=== PATIENT | female | born 1960 | race Asian ===

== ENCOUNTER 2025-03-09 09:12 | Emergency (ER) | payer SELFPAY ==
[2025-03-09] MEDS ORDERED: MECLIZINE HCL 12.5 MG TAB ONE (10:10)
--- NOTE | 2025-03-09 10:16 | RAD REPORT ---
EXAM: CT Head Brain Wo Cont HISTORY: DIZZINESS COMPARISON: None TECHNIQUE: Multiple contiguous axial images were obtained for a CT of the brain without contrast. Sag ittal and coronal reformats were performed. One or more of the following dose reduction techniques were used: Automated exposure control, adjus tment of the mA and kV according to patient size, and iterative reconstruction. Unless otherwise specified, incidental findings do not require dedicated imaging follow-up. FINDINGS: No evidence of hydrocephalus, intracranial hemorrhage, or extra-axial fluid collection. The brain is normal in morphology. Expanded empty sella is incidentally noted. The calvarium is intact. The visualized paranasal sinuses and mastoid air cells are essentially clear . IMPRESSION: No evidence of acute intracranial abnormality. Incidentally noted expanded empty sella, this can be asymptomatic, however please correlate clinicall y for any hormonal abnormalities.
[2025-03-09 10:31] LABS: Absolute Lymphocytes (CBC) 2.2 K/uL (0.7-4.9); Hematocrit 38.8 % (36.0-45.0); Hemoglobin 12.6 g/dL (12.0-15.0); MCH 29.4 pg (27.0-35.0); MCHC 32.5 g/dL (32.0-36.0); MCV 90.5 fL (80-100); MPV 8.2 fL (7.6-11.3); Nucleated RBC Absolute Count 0.0 (0-0); Nucleated Red Blood Cells % 0.1 % (0-0); RBC Red Blood Cell Count 4.29 M/uL (3.86-4.86); White Blood Count 7.20 thou/uL (4.3-10.9)
[2025-03-09 10:42] LABS: ALT/SGPT 16 U/L (13-56); Albumin 3.0 g/dL (3.4-5.0); Albumin/Globulin Ratio 0.7 (1.1-1.8); Alkaline Phosphatase 75 U/L (45-117); Anion Gap 7.0 mEq/L (5.0-15.0); BUN Blood Urea Nitrogen 8 mg/dL (7-18); Globulin 4.6 g/dL (2.3-3.5); Glucose Level 101 mg/dL (74-106)
[2025-03-09 10:43] LABS: AST/SGOT 13 U/L (15-37); Bilirubin Indirect, Calculated 0.2 mg/dL (0.2-0.8); Magnesium 1.9 mg/dL (1.6-2.4); Potassium 4.0 mEq/L (3.5-5.1)
--- NOTE | 2025-03-09 10:56 | EDPHYS ---
Physician Documentation [facility] Name: Betty Manuel Age: 64 yrs Sex: Female : 1960 Arrival Date: 03/09/2025 Time: 09:12 Bed 16 Private MD: ED Physician Brett Robles HPI: 03/09 09:46 This 64 yrs old Female presents to ER via Ambulatory with complaints of sp3 Dizziness, Nausea. 09:46 64-year-old female with no significant past medical history presents with sp3 vertigo/dizziness symptoms coupled with mild headache episodically for the last 3 to 4 days. Patient was seen at PCP by nurse practitioner and was told that she had a normal physical exam and nothing further was indicated. No medications were given. She presents here for continued symptoms. She denies any ringing in her ears, changes in vision, changes in speech, changes in hearing, unilateral or global weakness, numbness or tingling, or any other neurological complaints or symptoms. She also denies neck pain, trauma, chest pain, shortness of breath, back pain, abdominal pain, vomiting, diarrhea, fever, URI symptoms, or any other signs or symptoms on ROS at this time. She does endorse mild nausea when the dizziness gets worse.. Historical: - Allergies: 09:35 No Known Allergies; iw - Home Meds: 09:35 None [Active]; iw - PMHx: 09:35 None; iw - PSHx: 09:35 None; iw - Infectious Disease History:: Denies. - Social history:: Smoking status: Patient denies any tobacco usage or history of. Patient/guardian denies using. ROS: 09:47 Constitutional: Negative for fever, chills, and weight loss, Eyes: Negative for injury, sp3 pain, redness, and discharge, ENT: Negative for injury, pain, and discharge, Neck: Negative for injury, pain, and swelling, Cardiovascular: Negative for chest pain, palpitations, and edema, Respiratory: Negative for shortness of breath, cough, wheezing, and pleuritic chest pain, Abdomen/GI: Negative for abdominal pain, nausea, vomiting, diarrhea, and constipation, Back: Negative for injury and pain, MS/Extremity: Negative for injury and deformity, Skin: Negative for injury, rash, and discoloration, Psych: Negative for depression, anxiety, suicide ideation, homicidal ideation, and hallucinations, Allergy/Immunology: Negative for hives, rash, and allergies, Endocrine: Negative for neck swelling, polydipsia, polyuria, polyphagia, and marked weight changes, Hematologic/Lymphatic: Negative for swollen nodes, abnormal bleeding, and unusual bruising, 09:47 All other systems are negative, Exam: 09:48 Constitutional: This is a well developed, well nourished patient who is awake, alert, sp3 and in no acute distress. Head/Face: Normocephalic, atraumatic. Eyes: Pupils equal round and reactive to light, extra-ocular motions intact. Lids and lashes normal. Conjunctiva and sclera are non-icteric and not injected. Cornea within normal limits. Periorbital areas with no swelling, redness, or edema. ENT: Nares patent. No nasal discharge, no septal abnormalities noted. External auditory canals are clear. Oropharynx with no redness, swelling, or masses, exudates, or evidence of obstruction, uvula midline. Mucous membranes moist. Neck: Trachea midline, no thyromegaly or masses palpated, and no cervical lymphadenopathy. Supple, full range of motion without nuchal rigidity, or vertebral point tenderness. No Meningismus. Chest/axilla: Normal chest wall appearance and motion. Nontender with no deformity. No lesions are appreciated. Cardiovascular: Regular rate and rhythm with a normal S1 and S2. No gallops, murmurs, or rubs. Normal PMI, no JVD. No pulse deficits. Respiratory: Lungs have equal breath sounds bilaterally, clear to auscultation and percussion. No rales, rhonchi or wheezes noted. No increased work of breathing, no retractions or nasal flaring. Abdomen/GI: Soft, non-tender, with normal bowel sounds. No distension or tympany. No guarding or rebound. No evidence of tenderness throughout. Back: No spinal tenderness. No costovertebral tenderness. Full range of motion. Skin: Warm, dry with normal turgor. Normal color with no rashes, no lesions, and no evidence of cellulitis. MS/ Extremity: Pulses equal, no cyanosis. Neurovascular intact. Full, normal range of motion. Psych: Awake, alert, with orientation to person, place and time. Behavior, mood, and affect are within normal limits. 09:48 Neuro: Normal neurological exam noted. Vertigo is inducible and subsides with time. No significant nystagmus noted., Vital Signs: 09:36 BP 121 / 76; Pulse 63; Resp 16; Temp 97.6; Pulse Ox 100% on R/A; Weight 58.51 kg; iw Height 4 ft. 8 in. ; 09:36 Body Mass Index 28.92 (58.51 kg, 142.24 cm) iw MDM: 09:32 Medical Screening Exam initiated sp3 09:48 Data reviewed: vital signs, nurses notes, lab test result(s), radiologic studies. ED sp3 course: 64-year-old female with dizziness. Differential diagnosis includes peripheral vertigo versus central vertigo versus tumor versus mass versus viral illness. I am not highly suspicious of TIA/stroke spectrum. Will obtain CT scan of the head, general labs and administer meclizine for both symptomatic and diagnostic trial. Disposition pending workup and patient course. Vital signs are normal and patient is in no acute distress resting comfortably.. 10:54 ED course: Patient feels better after meclizine. Full workup negative. Will discharge sp3 on meclizine with PCP follow-up.. 10 09:44 Order name: Basic Metabolic Panel; Complete Time: 10:53 sp3 03/09 09:44 Order name: CBC with Diff; Complete Time: 10:53 sp3 03/09 09:44 Order name: Hepatic Function; Complete Time: 10:53 sp3 03/09 09:44 Order name: Magnesium; Complete Time: 10:53 sp3 03/09 09:44 Order name: CT Head Brain wo Cont; Complete Time: 10:16 sp3 03/09 09:44 Order name: IV Saline Lock; Complete Time: 10:14 sp3 03/09 09:44 Order name: Labs collected and sent; Complete Time: 10:14 sp3 03/09 09:44 Order name: NPO; Complete Time: 10:29 sp3 Administered Medications: 10:14 Drug: Meclizine PO 25 mg PO once Route: PO; iw 10:45 Follow up: Response: No adverse reaction af3 Disposition Summary: 03/09/25 10:55 Discharge Ordered Notes: Location: Home sp3 Condition: Stable sp3 Diagnosis - Peripheral vertigo sp3 Followup: sp3 - With: Private Physician - When: Upon discharge from the Emergency Department - Reason: Continuance of care Discharge Instructions: - Discharge Summary Sheet sp3 - Vertigo sp3 Forms: - Medication Reconciliation Form sp3 - Antibiotic Education sp3 - Prescription Opioid Use sp3 - Patient Portal Instructions sp3 - Leadership Thank You Letter sp3 Prescriptions: - Meclizine 25 mg Oral Tablet - take 1 tablet ORAL route every 8 hours As needed; 30 tablet; Refills: 0, sp3 Product Selection Permitted Signatures: Dispatcher [employer] Tana Palacio, KIMMY ONEAL iw Brett Robles MD MD sp3 Neena Velazco RN af3
--- NOTE | 2025-03-09 10:56 | ER ---
Nurse's Notes [facility] Name: Betty Manuel Age: 64 yrs Sex: Female : 1960 Arrival Date: 03/09/2025 Time: 09:12 Bed 16 Private MD: Diagnosis: Peripheral vertigo Presentation: 03/09 09:32 Chief complaint: Patient states: dizziness, nausea X 2 days, today it is worse, she iw woke up feeling like the room is spinning and her head feels heavy , [facility] and they did an ekg and checked her ears and said she was ok, she also was having back pain and took "back aid" (tylenol/pamabrom) and her daughter states that is when she started feeling dizzy. Coronavirus screen: At this time, the client does not indicate any symptoms associated with coronavirus-19. Ebola Screen: No symptoms or risks identified at this time. Initial Sepsis Screen: Does the patient meet any 2 criteria? Does the patient have a suspected source of infection? No. Patient's initial sepsis screen is negative. Risk Assessment: Do you want to hurt yourself or someone else? Patient reports no desire to harm self or others. Onset of symptoms was March 07, 2025. 09:32 Method Of Arrival: Ambulatory iw 09:32 Acuity: NANI 3 iw Triage Assessment: 09:35 General: Appears in no apparent distress. Behavior is calm, cooperative. iw Historical: - Allergies: 09:35 No Known Allergies; iw - Home Meds: 09:35 None [Active]; iw - PMHx: 09:35 None; iw - PSHx: 09:35 None; iw - Infectious Disease History:: Denies. - Social history:: Smoking status: Patient denies any tobacco usage or history of. Patient/guardian denies using. Screenin:45 [facility] ED Fall Risk Assessment (Adult) History of falling in the last 3 months, af3 including since admission No falls in past 3 months (0 pts) Confusion or Disorientation No (0 pts) Intoxicated or Sedated No (0 pts) Impaired Gait Yes (1 pt) Mobility Assist Device Used No (0 pt) Altered Elimination No (0 pt) Score/Fall Risk Level 0 - 2 = Low Risk Oriented to surroundings, Maintained a safe environment, Educated pt \\T\\ family on fall prevention, incl call for assistance when getting out of bed. 10:45 Abuse screen: Denies threats or abuse. Denies injuries from another. Nutritional af3 screening: No deficits noted. Tuberculosis screening: No symptoms or risk factors identified. Assessment: 09:35 General: Appears in no apparent distress. Behavior is calm, cooperative. Pain: iw Complains of pain in head. Neuro: Level of Consciousness is awake, alert, obeys commands, Oriented to person, place, time, situation, Lamination Assembler are equal bilaterally Moves all extremities. Full function Speech is normal, Reports dizziness, headache. Cardiovascular: Patient's skin is warm and dry. Respiratory: Respiratory effort is even, unlabored, Respiratory pattern is regular, symmetrical. GI: Abdomen is non-distended. Derm: Skin is intact, is healthy with good turgor. Musculoskeletal: Range of motion: intact in all extremities. 10:40 Reassessment: Patient appears in no apparent distress at this time. Patient and/or iw family updated on plan of care and expected duration. Pain level reassessed. Patient is alert, oriented x 3, equal unlabored respirations, skin warm/dry/pink. Patient states feeling better. Patient states symptoms have improved. Vital Signs: 09:36 BP 121 / 76; Pulse 63; Resp 16; Temp 97.6; Pulse Ox 100% on R/A; Weight 58.51 kg; iw Height 4 ft. 8 in. ; 09:36 Body Mass Index 28.92 (58.51 kg, 142.24 cm) iw ED Course: 09:16 Patient arrived in ED. cj3 09:19 Brett Robles MD is Attending Physician. sp3 09:27 Neena Velazco, KIMMY is Primary Nurse. af3 09:35 Triage completed. iw 09:35 Arm band placed on. iw 09:55 CT Head Brain wo Cont In Process Unspecified. EDMS 10:45 Patient has correct armband on for positive identification. Bed in low position. Call af3 light in reach. Provided Education on: call light use . 10:45 No provider procedures requiring assistance completed. IV discontinued, intact, af3 bleeding controlled, No redness/swelling at site. Pressure dressing applied. Administered Medications: 10:14 Drug: Meclizine PO 25 mg PO once Route: PO; iw 10:45 Follow up: Response: No adverse reaction af3 Medication: 11:15 VIS not applicable for this client. af3 Outcome: 10:45 Discharged to home ambulatory, af3 10:45 Condition: stable 10:45 Discharge instructions given to patient, Instructed on discharge instructions, follow up and referral plans. medication usage, Demonstrated understanding of instructions, follow-up care, medications, Prescriptions given X 1, 10:55 Discharge ordered by . sp3 11:09 Patient left the ED. af3 Signatures: Dispatcher [employer] Tana Palacio, RN Brett Ayala MD MD sp3 Neena Velazco RN RN af3 Kiya Segal cj3
[2025-03-09 11:12] VITALS: BP 121/76; TEMP 97.6; O2SAT 100
== END 2025-03-09 11:09 | disposition home or self-care (01) ==
LOC: ER 09:12
DX: H81.399 Other peripheral vertigo, unspecified ear (principal)
CPT/HCPCS: 36415; 70450; 80048; 80076; 83735; 85025; 99283; J8597